=== PATIENT | male | born 1985 | race Caucasian/White ===

== ENCOUNTER → 2021-05-09 | Outpatient (CLI) | payer BC ==
--- NOTE | 2021-05-09 15:49 | Diagnostic Imaging Report ---
Indication: Left elbow pain 3 views of the left elbow show no fracture, dislocation or pathologic effusion. IMPRESSION: Negative left elbow Dictated by: Dictated on workstation # [id number]
== END ==
LOC: RAD FS 15:12
PROVIDERS: ATTEND Family Medicine
DX: M25.522 Pain in left elbow (principal)
CPT/HCPCS: 73080